=== PATIENT | male | born 1980 | race Two or more races ===

== ENCOUNTER 2024-01-13 16:10 | Emergency (ER) | payer MEDICAID, OTHER ==
[~2024-01-13] VITALS: Ht 172.7 cm; Wt 69.4 kg
[2024-01-13] MEDS ORDERED: LIDOCAINE HCL/MPF 1% 30 ML VIAL IJ ONE (17:30)
[2024-01-13] MEDS ORDERED: TDAP [DIPH/PERTUSSIS/TET] 0.5 ML VIAL IM ONE (17:30)
[2024-01-13] MEDS: LIDOCAINE HCL/PF 1% 30 ML VIAL TP ONE (17:36)
[2024-01-13 17:59] VITALS: BP 140/82; TEMP 98; O2SAT 99
== END 2024-01-13 18:00 | disposition home or self-care (01) ==
LOC: ER 16:15
DX: S51.811A Laceration without foreign body of right forearm, initial encounter (principal); F31.9 Bipolar disorder, unspecified; W26.0XXA Contact with knife, initial encounter; Y93.89 Activity, other specified; Y92.89 Other specified places as the place of occurrence of the external cause; Y99.8 Other external cause status
CPT/HCPCS: 99282; 12002; J3490 ×2; A6403

== ENCOUNTER 2024-01-21 13:02 | Emergency (ER) | payer OTHER ==
[~2024-01-21] VITALS: Ht 172.7 cm; Wt 68.9 kg
[2024-01-21 13:10] VITALS: BP 146/77; TEMP 98.2
[2024-01-21 13:41] VITALS: O2SAT 99
== END 2024-01-21 13:42 | disposition home or self-care (01) ==
LOC: ER 13:04
DX: S51.811D Laceration without foreign body of right forearm, subsequent encounter (principal); F31.9 Bipolar disorder, unspecified; X58.XXXD Exposure to other specified factors, subsequent encounter